=== PATIENT | male | born 1945 | race Caucasian/White ===

== ENCOUNTER 2021-01-10 12:39 | Outpatient (REF) | payer MEDICARE, SELFPAY ==
--- NOTE | ~2021-01-10 | CT_ITS ---
EXAMINATION: CT CHEST WITHOUT CONTRAST CLINICAL INFORMATION: Pulmonary nodules. COMPARISON: Previous chest CT most recent February 2020. TECHNIQUE: Multidetector volumetric CT imaging of the chest was done. Axial MIP volume rendering provided. Sagittal and coronal reformatted images were obtained. This CT examination was performed using dose optimization techniques as appropriate, variously including the following: *Automated exposure control. *Adjustment of mA and/or kV according to patient size (this includes techniques or standardized protocols for targeted exams where dose is matched to indication/reason for exam; i.e. extremities or head). *Use of iterative reconstruction technique. DLP: 110 mGy-cm FINDINGS: LUNGS: There is evidence of emphysema. There is interval decrease in size in the abnormal density at the right lung apex. This measures 0.7 x 1.4 cm, axial image 11 series 4, compared to 1.5 x 2.5 cm on previous exam. There is a 6 x 8 mm right upper lobe nodule, axial image 14 series 4, that is stable. There is a 0.8 x 1.8 cm irregularly-shaped right upper lobe nodule, axial image 20 series 4, that is stable. There is a stable right lower lobe 6 mm nodule axial image 43 series 4 that is stable. There is interval decrease in size in the irregular shape nodule in the left upper lobe adjacent to the mediastinum. This measures 6 x 10 mm, axial image 11 series 4, compared to 9 x 10 mm on previous exam. There is interval decrease in size in a triangular-shaped abnormal parenchymal density in the left upper lobe. This measures 0.8 x 1.6 cm, axial image 14 series 4. There is interval decrease in size in a 4 x 10 mm peripheral or subpleural left upper lobe nodule adjacent to the mediastinal surface, axial image 18 series 4, compared to 0.7 x 1.2 cm on previous exam. There is a new 2 x 5 mm left upper lobe nodule, axial image 18 series 4. There is a new 2 x 5 mm left upper lobe nodule, axial image 30 series 4. There is a new heterogeneous 6 x 7 mm left upper lobe nodule, axial image 35 series 4. There is a new heterogeneous 3 mm x 4 mm left lower lobe nodule, axial image 47 series 4. There is a new 3 x 4 mm heterogeneous left lower lobe nodule, axial image 51 series 4. There are scattered areas of increased bronchial wall thickening and peribronchial nodules suggestive of airways disease. MEDIASTINUM: The heart does not appear enlarged. There is coronary artery calcification. There is no pericardial effusion. The ascending thoracic aorta is upper normal in size measuring 4 cm. There are no enlarged hilar or mediastinal lymph nodes. There is question of bowel wall thickening of the thoracic esophagus. PLEURA: There is no pleural effusion. No pleural mass or thickening. AXILLA: No lymphadenopathy. UPPER ABDOMEN: The stomach is distended and filled with fluid. There are surgical clips in the left upper quadrant. The spleen may have been removed. OSSEOUS STRUCTURES: There are degenerative changes of the spine. There is stable appearance to the L2 vertebral body again questionable for Paget's disease. CT/CT chest wo con IMPRESSION: Emphysema. Waxing and waning appearance of numerous bilateral upper lobe pulmonary nodules. There are several new left upper and left lower lobe nodules and there is increasing bronchial wall thickening, peribronchial nodules and increased attenuation suggestive of airways disease. There are 2 nodules in the right upper lobe and right lower lobe that are stable. Continued chest CT follow-up is recommended. Coronary artery calcification. Upper normal-size thoracic aorta. Question wall thickening of the thoracic esophagus. Very dilated fluid-filled stomach.
== END 2021-01-10 12:40 | disposition home or self-care (01) ==
LOC: HO.CT 12:39
PROVIDERS: Visit Provider Surgery
DX: R91.8 Other nonspecific abnormal finding of lung field (principal)
CPT/HCPCS: 71250

== ENCOUNTER → 2021-01-21 10:39 | Outpatient (BNVA) | payer MEDICARE, SELFPAY | PROVIDERS: PCP Internal Medicine; Visit Provider Surgery | DX: R91.8 Other nonspecific abnormal finding of lung field (principal); F17.210 Nicotine dependence, cigarettes, uncomplicated; Z71.6 Tobacco abuse counseling ==

== ENCOUNTER 2022-01-04 13:16 | Outpatient (REF) | payer MEDICARE, SELFPAY ==
--- NOTE | ~2022-01-04 | CT_ITS ---
EXAMINATION: CT CHEST WITHOUT CONTRAST CLINICAL INFORMATION: Follow up pulmonary nodule. COMPARISON: 01/10/2021, 02/16/2020. TECHNIQUE: Multidetector volumetric CT imaging of the chest was done. Axial MIP volume rendering provided. Sagittal and coronal reformatted images were obtained. This CT examination was performed using dose optimization techniques as appropriate, variously including the following: *Automated exposure control *Adjustment of mA and/or kV according to patient size (this includes techniques or standardized protocols for targeted exams where dose is matched to indication/reason for exam; i.e. extremities or head) *Use of iterative reconstruction technique DLP: 107 mGy-cm FINDINGS: STACKER DRIVER: Unremarkable LUNGS: There are emphysematous changes with some interval change since previous study in an appearance of right upper lobe scarring associated with small adjacent bullae. There is stable tubular in shape 0.4 x 1.4 cm lesion in the medial aspect of the right upper lobe. There is ground-glass opacity right upper lobe more prominent than on the previous study; 0.5 cm nodule, seen on image 16 series 4; and new since previous study ground-glass opacity right upper lobe 0.5 cm nodule seen on image 17. There is spiculated stable right upper lobe lesion measured approximately 3.1 x 1.5 x 0.7 cm. There is ill-defined ground-glass 0.6 cm nodule seen on image 21 series 4. There is new since previous study right upper lobe 0.4 cm nodule abutting fissure in the right upper lobe. There is ill-defined scarring in right lower lobe on image 31 measured approximately 0.4 x 0.6 cm. There is 0.3 cm nodule in the right upper lobe seen on image 34, and there is stable right middle lobe 0.4 cm nodule on image 49. There is new since previous examination left lower lobe 0.4 cm nodule on image 60. There is stable fissure-based left lower lobe 0.2 cm nodule seen on image 56. There is fissure-based right upper lobe ground-glass opacity ill-defined nodule measured 1.4 cm partially seen on the previous study. There is ground-glass opacity ill-defined nodule in the right upper lobe measured 0.7 cm on image 37. There is scarring appearing ill-defined left upper lobe 0.8 x 0.9 cm nodule slightly changed since previous study seen on image 30 series 4. There is 0.6 x 0.5 cm nodule in the left upper lobe seen on image 17. There is scarring in the left upper lobe with ill-defined margins, measured 0.9 x 1.0 cm. MEDIASTINUM: The mediastinum is normal. Mild coronary artery calcifications seen. PLEURA: There is no pleural effusion. No pleural mass or thickening. AXILLA: No lymphadenopathy. UPPER ABDOMEN: Unremarkable. OSSEOUS STRUCTURES: Unremarkable. CT/CT chest wo con IMPRESSION: Minimal interval change in appearance of emphysematous changes with numerous bilateral mostly upper lobe pulmonary nodules and scarring. Coronary artery calcifications. Fleischner guidelines were followed.
== END 2022-01-04 13:17 | disposition home or self-care (01) ==
LOC: HO.CT 13:16
PROVIDERS: Visit Provider Surgery
DX: R91.8 Other nonspecific abnormal finding of lung field (principal)
CPT/HCPCS: 71250

== ENCOUNTER → 2022-10-06 10:45 | Outpatient (BNVA) | payer MEDICARE, SELFPAY | PROVIDERS: PCP Physician Assistant Medical; Visit Provider Surgery | DX: R91.8 Other nonspecific abnormal finding of lung field (principal); F17.210 Nicotine dependence, cigarettes, uncomplicated | CPT/HCPCS: 99212 ==